=== PATIENT | male | born 1995 | race Caucasian/White ===

== ENCOUNTER 2018-10-02 00:32 | Emergency (ER) | payer OTHER ==
[~2018-10-02] VITALS: Ht 180.3 cm; Wt 105.2 kg
--- NOTE | 2018-10-02 00:52 | NUR ---
Patient arrive at the ER with chief complaint of abdominla pain. Patient reported pain started yesterday 10/01/18 at 4am. Had taken Tums 2 tablet x3, last taken at 11am yesterday with no relief. Patient also reported diarrhea x3 yesterday. Denies any N/V. Patient AAOX4. In no respiratory distress. No cardiovascular concern. No concern. Bed on lock position. Fall precaution per protocol.
--- NOTE | 2018-10-02 00:59 | NUR ---
DENILSON HUNTLEY at bedside for MSE.
[2018-10-02] MEDS ORDERED: MAG HYDROX/AL HYDROX/SIMETH 30 ML LIQUID UDC ONE (01:13)
[2018-10-02] MEDS ORDERED: PANTOPRAZOLE SODIUM 40 MG TABLET.DR PO ONE ×2 (01:14→01:15)
[2018-10-02] MEDS ORDERED: LIDOCAINE VISCUS 2% 15 ML UDC MM ONE (01:15)
[2018-10-02] MEDS ORDERED: MAG HYDROX/AL HYDROX/SIMETH 30 ML LIQUID UDC PO ONE (01:15)
--- NOTE | 2018-10-02 01:50 | NUR ---
Patient discharged to home in stable conditon. Written and verbal after care instructions given. Patient verbalizes understanding of instructions. Patient ambulated out of ER with steady gait. All belongings with patient.
[2018-10-02 02:08] VITALS: BP 136/78
== END 2018-10-02 02:09 | disposition other institution (70) ==
LOC: ER 00:40
DX: K52.9 Noninfective gastroenteritis and colitis, unspecified (principal); K29.70 Gastritis, unspecified, without bleeding
CPT/HCPCS: A4663